=== PATIENT | female | born 2000 | race Caucasian/White ===

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

== ENCOUNTER 2019-10-11 23:18 | Emergency (ER) | payer OTHER ==
[2019-10-12 00:04] LABS: Mucus,Urine Occasional /hpf; Squamous Epithelial Cell,Urine 3 /hpf (0-4); WBC,Urine 96 /hpf (0-5)
[2019-10-12 00:06] LABS: Appearance,Urine Cloudy (Clear); Color,Urine Red
[2019-10-12 00:07] LABS: RBC,Urine >182 /hpf (0-5)
--- NOTE | 2019-10-12 00:46 | XR ---
EXAMINATION TYPE: XR KUB DATE OF EXAM: 10/12/2019 COMPARISON: NONE HISTORY: Flank pain TECHNIQUE: 2 views upright FINDINGS: There is no sign of intestinal obstruction or pneumoperitoneum. Fecal pattern is normal. Th ere are no pathologic calcifications over the kidneys. Lung bases are clear. IMPRESSION: Nonacute abdomen.
[2019-10-12 00:52] LABS: Basophils # (A) 0.1 k/uL (0-0.2); Basophils % (A) 1 %; Eosinophils # (A) 0.5 k/uL (0-0.7); Eosinophils % (A) 3 %; HGB 11.9 gm/dL (11.4-16.0); Lymphocytes # (A) 2.7 k/uL (1.0-4.8); Lymphocytes % (A) 18 %; MCH 22.8 pg (25.0-35.0); MCHC 30.6 g/dL (31.0-37.0); MCV 74.6 fL (80.0-100.0); Mean Platelet Volume 7.7; Microcytosis Slight; Monocytes # (A) 0.9 k/uL (0-1.0); Monocytes % (A) 6 %; Neutrophils # (A) 10.8 k/uL (1.3-7.7); Neutrophils % (A) 71 %; Platelet Count 391 k/uL (150-450); RBC 5.22 m/uL (3.80-5.40); RDW 15.6 % (11.5-15.5); WBC 15.2 k/uL (3.8-10.6)
[2019-10-12 01:16] LABS: ALT 24 U/L (4-34); AST 23 U/L (14-36); African American GFR (CKD) >90 (>60 ml/min/1.73 sqM); Albumin 4.4 g/dL (3.5-5.0); Alkaline Phosphatase 110 U/L (38-126); Anion Gap 12 mmol/L; Blood Urea Nitrogen 10 mg/dL (7-17); Calcium 9.8 mg/dL (8.4-10.2); Carbon Dioxide 23 mmol/L (22-30); Chloride 103 mmol/L (98-107); Glucose 85 mg/dL (74-99); Non-African American GFR(CKD) >90 (>60 ml/min/1.73 sqM); Potassium 4.2 mmol/L (3.5-5.1); Sodium 138 mmol/L (137-145); Total Bilirubin 0.3 mg/dL (0.2-1.3); Total Protein 7.4 g/dL (6.3-8.2)
--- NOTE | 2019-10-12 01:58 | ED ---
General Adult HPI - General Chief complaint: Abdominal Pain Stated complaint: Blood in urine, bilateral flank pain Time Seen by Provider: 10/11/19 23:41 Source: patient, family, RN notes reviewed, old records reviewed Mode of arrival: ambulatory Limitations: no limitations - History of Present Illness Initial comments: 19-year-old female patient past history of renal calculi previously chief complaint of right flank pain. Patient reportedly for the last 5 days she has been having right flank pain and blood in her urine. Reports it feels identical to kidney stones in the past. She denies any other complaints. Patient was seen at another emergency department approximate 5 days ago for the same symptoms. Patient was placed on Keflex by this emergency department. She has a few days left of this. She does have an appointment to see a urologist on Tuesday. She reports that she was having a lot of pain at home however it has since resolved by the time that she got to the Emergency department. Systemic: Pt denies fatigue, fever/chills, rash. Pt denies weakness, night sweats, weight loss. Neuro: Pt denies headache, visual disturbances, syncope or pre-syncope. HEENT: Pt denies ocular discharge or irritation, otalgia, rhinorrhea, pharyngiti s or notable lymphadenopathy. Cardiopulmonary: Pt denies chest pain, SOB, heart palpitations, dyspnea on exertion. Abdominal/GI: Pt denies abdominal pain, n/v/d. : Denies new onset urinary or bowel incontinence. MSK: Pt denies myalgia, loss of strength or function in extremities. Neuro: Pt denies new onset weakness, paresthesias. - Related Data Home Medications Medication Instructions Recorded Confirmed Sertraline [Zoloft] 100 mg PO HS 10/07/17 10/07/17 l-Norgest/E.estradiol-E.estrad 1 tab PO HS 10/07/17 10/07/17 [Seasonique 0.15-0.03-0.01 Tab] Allergies Allergy/AdvReac Type Severity Reaction Status Date / Time amoxicillin AdvReac Nausea & Verified 10/11/19 23:29 Vomiting & Diarrhea Review of Systems ROS Statement: Those systems with pertinent positive or pertinent negative responses have been documented in the HPI. ROS Other: All systems not noted in ROS Statement are negative. 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 HEENT: NC/AT, trachea midline, neck supple, no lymphadenopathy. External ears appear normal, without discharge. Mucous membranes moist. Eyes PERRLA, EOM intact. There is no scleral icterus. No pallor noted. Cardiopulmonary: RRR, no murmurs, rubs or gallops, no JVD noted. Lungs CTAB in anterior and posterior yee. No peripheral edema. Abdominal exam: Abdomen soft and non-distended. Abdomen non-tender to palpation in all 4 quadrants. Bowel sounds active in LLQ. No hepatosplenomegaly. No ecchymosis. CVA tenderness is negative bilaterally. Neuro: CN II-XII grossly intact. No nuchal rigidity. No raccon eyes, no valdes sign, no hemotympanum. No cervical spinal tenderness. MSK: No posterior calf tenderness bilaterally, homans sign negative bilaterally. Posterior tibialis and radial pulse +2 bilaterally. Sensation intact in upper and lower extremities. Full active ROM in upper and lower extremities, 5/5 stregnth. Limitations: no limitations Course Vital Signs 10/11/19 23:26 Temperature 98.5 F Pulse Rate 88 Respiratory 18 Rate Blood Pressure 122/85 O2 Sat by Pulse 100 Oximetry Medical Decision Making - Medical Decision Making 19-year-old female patient past history of renal calculi previously chief complaint of right flank pain. Patient reportedly for the last 5 days she has been having right flank pain and blood in her urine. Reports it feels identical to kidney stones in the past. She denies any other complaints. Patient was seen at another emergency department approximate 5 days ago for the same symptoms. Patient was placed on Keflex by this emergency department. She has a few days left of this. She does have an appointment to see a urologist on Tuesday. She reports that she was having a lot of pain at home however it has since resolved by the time that she got to the Emergency department. Patient vital signs are stable, afebrile. Physical exam did not display acute pathology. Laboratory investigations are obtained there is a mild cytosis of 15.2. UA doesn't display materia greater than 182 red blood cells. 96 white blood cells. HCG Quant is negative. KUB displayed nonacute abdomen. Shared decision making CT will be declined this patient had one last year for kidney stones she states that it feels the same and wishes to avoid radiation burden. Patient will be discharged for follow-up with primary care provider and urologist. Will return to ER if condition worsens. Case discussed with Dr. Louise. - Lab Data Result diagrams: 10/12/19 00:32 10/12/19 00:32 Lab Results 10/11/19 10/11/19 10/12/19 Range/Units 23:45 23:45 00:32 WBC 15.2 H (3.8-10.6) k/uL RBC 5.22 (3.80-5.40) m/uL Hgb 11.9 (11.4-16.0) gm/dL Hct 39.0 (34.0-46.0) % MCV 74.6 L (80.0-100.0) fL MCH 22.8 L (25.0-35.0) pg MCHC 30.6 L (31.0-37.0) g/dL RDW 15.6 H (11.5-15.5) % Plt Count 391 (150-450) k/uL Neutrophils % 71 % Lymphocytes % 18 % Monocytes % 6 % Eosinophils % 3 % Basophils % 1 % Neutrophils # 10.8 H (1.3-7.7) k/uL Lymphocytes # 2.7 (1.0-4.8) k/uL Monocytes # 0.9 (0-1.0) k/uL Eosinophils # 0.5 (0-0.7) k/uL Basophils # 0.1 (0-0.2) k/uL Microcytosis Slight Sodium (137-145) mmol/L Potassium (3.5-5.1) mmol/L Chloride (98-107) mmol/L Carbon Dioxide (22-30) mmol/L Anion Gap mmol/L BUN (7-17) mg/dL Creatinine (0.52-1.04) mg/dL Est GFR (CKD-EPI)AfAm (>60 ml/min/1.73 sqM) Est GFR (CKD-EPI)NonAf (>60 ml/min/1.73 sqM) Glucose (74-99) mg/dL Calcium (8.4-10.2) mg/dL Total Bilirubin (0.2-1.3) mg/dL AST (14-36) U/L ALT (4-34) U/L Alkaline Phosphatase (38-126) U/L Total Protein (6.3-8.2) g/dL Albumin (3.5-5.0) g/dL Urine Color Red Urine Appearance Cloudy H (Clear) Urine RBC >182 H (0-5) /hpf Urine WBC 96 H (0-5) /hpf Ur Squamous Epith Cells 3 (0-4) /hpf Urine Mucus Occasional H (None) /hpf Urine HCG, Qual Not Detected (Not Detectd) 10/12/19 Range/Units 00:32 WBC (3.8-10.6) k/uL RBC (3.80-5.40) m/uL Hgb (11.4-16.0) gm/dL Hct (34.0-46.0) % MCV (80.0-100.0) fL MCH (25.0-35.0) pg MCHC (31.0-37.0) g/dL RDW (11.5-15.5) % Plt Count (150-450) k/uL Neutrophils % % Lymphocytes % % Monocytes % % Eosinophils % % Basophils % % Neutrophils # (1.3-7.7) k/uL Lymphocytes # (1.0-4.8) k/uL Monocytes # (0-1.0) k/uL Eosinophils # (0-0.7) k/uL Basophils # (0-0.2) k/uL Microcytosis Sodium 138 (137-145) mmol/L Potassium 4.2 (3.5-5.1) mmol/L Chloride 103 (98-107) mmol/L Carbon Dioxide 23 (22-30) mmol/L Anion Gap 12 mmol/L BUN 10 (7-17) mg/dL Creatinine 0.70 (0.52-1.04) mg/dL Est GFR (CKD-EPI)AfAm >90 (>60 ml/min/1.73 sqM) Est GFR (CKD-EPI)NonAf >90 (>60 ml/min/1.73 sqM) Glucose 85 (74-99) mg/dL Calcium 9.8 (8.4-10.2) mg/dL Total Bilirubin 0.3 (0.2-1.3) mg/dL AST 23 (14-36) U/L ALT 24 (4-34) U/L Alkaline Phosphatase 110 (38-126) U/L Total Protein 7.4 (6.3-8.2) g/dL Albumin 4.4 (3.5-5.0) g/dL Urine Color Urine Appearance (Clear) Urine RBC (0-5) /hpf Urine WBC (0-5) /hpf Ur Squamous Epith Cells (0-4) /hpf Urine Mucus (None) /hpf Urine HCG, Qual (Not Detectd) Disposition Clinical Impression: Flank pain Disposition: HOME SELF-CARE Condition: Stable Instructions (If sedation given, give patient instructions): Flank Pain (ED) Additional Instructions: Follow-up with primary care provider tomorrow and urologist as scheduled on Tuesday. If you are unable to follow-up I will also provide a local urologist. Return to ER if condition worsens. Is patient prescribed a controlled substance at d/c from ED?: No Referrals: Lou Fan MD [Primary Care Provider] - 1-2 days Emmanuel Rogers MD [STAFF PHYSICIAN] - 1-2 days
[2019-10-12 10:31] VITALS: BP 119/69; PULSE 91; RESP 18; TEMP 98.6
== END 2019-10-12 02:12 | disposition home or self-care (01) ==
LOC: EC 23:18
DX: R10.9 Unspecified abdominal pain (principal); R31.9 Hematuria, unspecified; F32.9 Major depressive disorder, single episode, unspecified; Z87.442 Personal history of urinary calculi; Z79.3 Long term (current) use of hormonal contraceptives; Z79.899 Other long term (current) drug therapy; Z88.0 Allergy status to penicillin; Z53.29 Procedure and treatment not carried out because of patient's decision for other reasons
CPT/HCPCS: 36415; 74018; 80053; 81001; 81025; 85025; 87086; 99284

== ENCOUNTER → 2023-12-26 | Outpatient (CLI) | payer OTHER ==
--- NOTE | 2023-12-27 13:47 | CA ---
Transthoracic Echo Report Name: Shannon Zapata Age: 23 Gender: F : 2000 Exam Date: 12/26/2023 15:20 Exam Location: [facility] Ht (in): 68 Wt (lb): 255 Ordering Physician: Lou Fan MD Attending/Referring Phys: Play Back Operator Lisseth Catherine, DILIP Procedure CPT: Indications: Z82.49 FAMILY HX OF ISCHEM HEART DIS AND OTH DIS O Cardiac Hx: Technical Quality: Fair Contrast 1: Total Dose (mL): Contrast 2: Total Dose (mL): MEASUREMENTS (Male / Female) Normal Values 2D ECHO LV Diastolic Diameter PLAX 4.6 cm 4.2 - 5.9 / 3.9 - 5.3 cm LV Systolic Diameter PLAX 3.2 cm IVS Diastolic Thickness 0.8 cm 0.6 - 1.0 / 0.6 - 0.9 cm LVPW Diastolic Thickness 1.1 cm 0.6 - 1.0 / 0.6 - 0.9 cm LV Relative Wall Thickness 0.4 RV Internal Dim ED PLAX 3.3 cm M-MODE Aortic Root Diameter MM 2.9 cm LA Systolic Diameter MM 4.0 cm LA Ao Ratio MM 1.4 AV Cusp Separation MM 0.0 cm DOPPLER AV Peak Velocity 146.9 cm/s AV Peak Gradient 8.6 mmHg AV Mean Velocity 92.1 cm/s AV Mean Gradient 4.1 mmHg AV Velocity Time Integral 25.9 cm LVOT Peak Velocity 137.2 cm/s LVOT Peak Gradient 7.5 mmHg LVOT Velocity Time Integral 23.1 cm Mitral E Point Velocity 88.7 cm/s Mitral A Point Velocity 60.6 cm/s Mitral E to A Ratio 1.5 MV Deceleration Time 166.3 ms MV E' Velocity 11.3 cm/s Mitral E to MV E' Ratio 7.8 FINDINGS Left Ventricle Normal left ventricular size, wall thickness, systolic function with no obvious regional wall motion abnormalities. Normal left ventricular diastolic filling pattern for age. The ejection fraction is visually estimated at 55-60 %. Right Ventricle The right ventricle is normal in size and function. Right ventricular systolic pressure within normal limits. Right Atrium The right atrium is normal in size. Left Atrium The left atrium is normal in size. Mitral Valve Structurally normal mitral valve without significant stenosis or prolapse. There is no mitral regurgitation. Aortic Valve Structurally normal aortic valve without significant sclerosis or stenosis. There is no aortic regurgitation. Tricuspid Valve Structurally normal tricuspid valve without significant stenosis. Pulmonary artery systolic pressure is normal. Pulmonic Valve Structurally normal pulmonic valve without significant stenosis. There is no pulmonic regurgitation. Pericardium Normal pericardium without effusion. Aorta Normal aortic root dimension. CONCLUSIONS Technically difficult study for interpretation Normal LV systolic function Previewed by: Dr. Ramone Clark MD (Electronically Signed) Final Date: 27 December 2023 13:45
== END | disposition home or self-care (01) ==
LOC: RADECHMAIN 15:06
PROVIDERS: ATTEND Family Medicine
DX: Z82.49 Family history of ischemic heart disease and other diseases of the circulatory system (principal)
CPT/HCPCS: 93306